=== PATIENT | female | born 1960 ===

== ENCOUNTER 2024-12-21 23:45 | Emergency (ER) | payer MEDICARE, MEDICAID, SELFPAY ==
--- NOTE | ~2024-12-21 | XR_ITS ---
CLINICAL HISTORY: hypotensive, AMS 1 view chest x-ray Comparison: None Findings: No consolidation or effusion. Heart size is normal. No acute fracture. IMPRESSION: 1. No acute findings. This document has been electronically signed by: Narciso Michelle MD, PHD on 12/22/2024 03:07:16
--- NOTE | 2024-12-22 | ECG_ITS ---
Test Reason : AMS/QTC CHECK Blood Pressure : */* mmHG Vent. Rate : 82 BPM Atrial Rate : 82 BPM P-R Int : 186 ms QRS Dur : 94 ms QT Int : 396 ms P-R-T Axes : 59 36 41 degrees QTcB Int : 462 ms Normal sinus rhythm Possible Left atrial enlargement Borderline ECG No previous ECGs available Referred By: Generic ED Physician Electronically Signed By: Surinder Beck
[2024-12-22 00:03] VITALS: BP 98/64; PULSE 97; O2SAT 98
[2024-12-22 00:05] VITALS: BMI 30.1
[2024-12-22 01:25] LABS: Basophils Absolute Auto 0.1 X10*3/uL (0.0-0.2); Basophils Percent Auto 0.8 % (0-2); Eosinophils Absolute Auto 0.2 X10*3/uL (0.0-0.4); Eosinophils Percent Auto 2.1 % (0-4); Hematocrit 31.3 % (37.0-47.0); Hemoglobin 10.9 g/dl (12.0-16.0); Imm Gran Abs Auto 0.02 X10*3/uL (0.00-0.03); Imm Gran Pct Auto 0.3 % (0.0-0.4); Lymphocytes Absolute Auto 2.9 X10*3/uL (1.2-4.9); Lymphocytes Percent Auto 40.9 % (20-40); MANUAL DIFF FLAG NO; Mean Corpuscular HGB Conc 34.8 g/dl (31.0-35.0); Mean Corpuscular Hemoglobin 30.1 pg (27.0-33.0); Mean Corpuscular Volume 86.5 fL (80.0-98.0); Mean Platelet Volume 8.8 fL (9.4-12.3); Monocytes Absolute Auto 0.6 X10*3/uL (0.1-1.2); Monocytes Percent Auto 8.3 % (2-11); Neutrophils Absolute Auto 3.4 x10*3/uL (2.0-8.3); Neutrophils Percent Auto 47.6 % (45-73); Platelet Count 272 X10*3/uL (160-400); Red Blood Count 3.62 X10*6/uL (4.20-5.50); Red Cell Distribution Width 14.8 % (11.0-16.0); White Blood Count 7.1 X10*3/uL (4.8-10.8)
[2024-12-22 01:56] LABS: Alanine Aminotransferase 14 U/L (0-31); Albumin Level 4.3 g/dL (3.5-5.0); Alkaline Phosphatase 58 U/L (39-117); Anion Gap 15 (12-20); Aspartate Amino Transferase 21 U/L (5-31); Bilirubin Total 0.2 mg/dL (0.0-1.0); Blood Urea Nitrogen 18 mg/dL (9-16); Calcium 9.3 mg/dL (8.4-10.2); Carbon Dioxide 24 mmol/L (22-29); Chloride 107 mmol/L (96-108); Creatinine Clr Calc Pharmacy 53.4; Estimated Glomerular Filt Rate 50; Glucose Random 113 mg/dL (60-115); Potassium 4.1 mmol/L (3.3-5.1); Sodium 142 mmol/L (135-145); Total Protein 6.7 g/dL (6.5-8.0)
[2024-12-22 02:08] VITALS: BP 93/48; PULSE 79; RESP 16; O2SAT 100
[2024-12-22] MEDS: 0.9 % Sodium Chloride 2,000 ML 999 ML IVCONT ×2 (02:10→03:15)
--- NOTE | 2024-12-22 02:13 | PC.NURSE ---
Addendum entered by Estela Orr RN 12/22/24 04:53: attempted to call [facility] several times, each time they transfer me to another unit and no answer. Addendum entered by Estela Orr RN 12/22/24 03:19: pt straight cath per md order with EDT, 100ml of yellow urine drained. pt tolerated well. Original Note: pt [facility] from [place] with reports of agitation and altered mental status. 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 Upon arrival to ED pt was alert to self only, not reposnding appropriately to questions, EDT tech heard her asking about babies being in the room. Per EMS pt has hx of schizophrenia. attempted to call the facility x 3, twice no answer and one time was answered left on hold.
--- NOTE | 2024-12-22 02:49 | ED_ITS ---
HPI - Altered Mental Status General Chief Complaint: Altered Mental Status Stated Complaint: ams, restlessness Time Seen by Provider: 12/22/24 02:06 Source: EMS Mode of arrival: EMS Limitations: altered mental status History of Present Illness ED Provider: Dr. Teresa Ortiz HPI narrative: Patient comes to the emergency room from [place] via ambulance. According to EMS, the staff reported that the patient was very agitated. [facility] informed EMS that the patient has been there for 1 day, patient has history of schizophrenia and dementia. Today, patient was refusing medications. Patient ended up getting IM 75 mg of fluorescein, and eventually they were able to give the patient p.o. meds including 5 mg of olanzapine, 1 mg of risperidone p.o., 50 mg of trazodone and 650 mg of Tylenol. When patient arrived, patient is somnolent, opens her eyes and falls back asleep. Related Data Allergies Allergy/AdvReac Type Severity Reaction Status Date / Time haloperidol [From Haldol] Allergy Unknown Verified 12/22/24 02:38 prednisone Allergy Unknown Verified 12/22/24 02:38 Review of Systems 2 Review of Systems: Yes Other [facility] Past Medical History Medical History Dementia Schizophrenia Social History Social History Advance Directives: No Advance Directives Information Provided: No Physical Exam ED Vital Signs: Vital Signs - 24 hr 12/22/24 02:08 12/22/24 03:14 Pulse Rate 79 82 Respiratory Rate 16 15 Blood Pressure 93/48 L 109/60 Pulse Oximetry 100 100 Oxygen Delivery Method Nasal Cannula Nasal Cannula Oxygen Flow Rate 2 2 BMI result Body Mass Index 30.1 Const Other: Appearance: Somnolent, wakes up and closes her eyes Eyes: Pupils equal, round and reactive to light. ENT: Pharynx normal. Neck: Normal inspection. Neck supple. No lymph nodes noted. No crepitus CVS: Normal heart rate and rhythm. Pulses normal. Normal S1 and S2 Respiratory: No respiratory distress. Breath sounds normal. No Wheezing. No rales Abdomen: Soft and nontender. No rigidity. No distention. Skin: Skin warm and dry. Normal skin color. Normal skin turgor. Extremities: No lower extremity edema. No Lacerations. No Rash Neuro: Somnolent Psych: Somnolent Course Course Course Narrative: Patient is unable to give any history We will obtain basic lab It seems that patient was overmedicated prior to arrival Patient's blood pressure on the soft side, high 80s low 90s, secondary to over medication. Patient has no fever at this time, sepsis is not suspected Patient receiving IV fluids Medications Administered Discontinued Medications Generic Name Dose Route Start Last Admin Trade Name Amanda PRN Reason Stop Dose Admin Sodium Chloride 2,000 mls @ 999 mls/hr 12/22/24 02:07 12/22/24 03:14 Ns IVCONT 12/22/24 04:07 Infused .Q2H1M ONE Infusion Sodium Chloride 2,000 mls @ 999 mls/hr 12/22/24 02:06 12/22/24 04:54 Ns IVCONT 12/22/24 04:06 Infused .Q2H1M ONE Infusion Medical Decision Making Medical Decision Making [facility] Narrative: My interpretation of labs: No significant abnormality in patient's hematology and chemistry Urinalysis negative for UTI, positive for benzodiazepines Patient's blood pressure in the 90s systolic. In his so somnolent that sometimes she desaturates, supplemental oxygen was started My interpretation of x-ray: No infiltrates. Oxygen desaturation likely secondary to being overmedicated At 5 am, patient awake, alert. Patient yelling out code blue, code blue , patient laughing and enjoying the attention of people rushing into her room Overall, seems that patient was overmedicated. At [facility], they need to review her medications. Here in the emergency room, patient had several episodes of hypotension secondary to polypharmacy. Hypotension resolved. Patient awake. Patient no longer lethargic. Patient ready to be discharged back to [facility] [facility] Differential Diagnosis Differential Diagnoses: The differential diagnosis associated with the presentation includes (Polypharmacy, UTI) Admission/Observation Consideration of admission/observation: Escalation of care including admission/observation considered (Given patient's low blood pressure due to polypharmacy, observation/admission was considered) Lab Data [facility] Lab Attestation statement: I reviewed the patient's lab results. 12/22/24 01:20 12/22/24 01:20 Labs: Lab Results 12/22/24 12/22/24 Range/Units 01:20 03:13 WBC 7.1 (4.8-10.8) X10*3/uL RBC 3.62 L (4.20-5.50) X10*6/uL Hgb 10.9 L (12.0-16.0) g/dl Hct 31.3 L (37.0-47.0) % MCV 86.5 (80.0-98.0) fL MCH 30.1 (27.0-33.0) pg MCHC 34.8 (31.0-35.0) g/dl RDW 14.8 (11.0-16.0) % Plt Count 272 (160-400) X10*3/uL MPV 8.8 L (9.4-12.3) fL Immature Gran % (Auto) 0.3 (0.0-0.4) % Neut % (Auto) 47.6 (45-73) % Lymph % (Auto) 40.9 H (20-40) % [place] % (Auto) 8.3 (2-11) % Eos % (Auto) 2.1 (0-4) % Baso % (Auto) 0.8 (0-2) % Lymph # (Auto) 2.9 (1.2-4.9) X10*3/uL [place] # (Auto) 0.6 (0.1-1.2) X10*3/uL Eos # (Auto) 0.2 (0.0-0.4) X10*3/uL Baso # (Auto) 0.1 (0.0-0.2) X10*3/uL Abs Immat Gran (auto) 0.02 (0.00-0.03) X10*3/uL Absolute Neuts (auto) 3.4 (2.0-8.3) x10*3/uL Absolute Nucleated RBC 0.000 (0.0-0.012) X10*3/uL Nucleated RBC % (auto) 0.0 (0.0-0.2) /100WBC Sodium 142 (135-145) mmol/L Potassium 4.1 (3.3-5.1) mmol/L Chloride 107 (96-108) mmol/L Carbon Dioxide 24 (22-29) mmol/L Anion Gap 15 (12-20) BUN 18 H (9-16) mg/dL Creatinine 1.10 (0.5-1.4) mg/dL Estim Creat Clear Calc 53.4 Estimated GFR 50 Random Glucose 113 (60-115) mg/dL Calcium 9.3 (8.4-10.2) mg/dL Total Bilirubin 0.2 (0.0-1.0) mg/dL AST 21 (5-31) U/L ALT 14 (0-31) U/L Alkaline Phosphatase 58 (39-117) U/L Total Protein 6.7 (6.5-8.0) g/dL Albumin 4.3 (3.5-5.0) g/dL Urine Color Yellow Urine Appearance Clear Urine pH 6.5 (5.0-9.0) Ur Specific [place] 1.020 (1.005-1.025) Urine Protein Negative (Neg-Trace) mg/dL Urine Glucose (UA) Negative (Negative) mg/dL Urine Ketones Trace (Negative) mg/dL Urine Blood Negative (Negative) Urine Nitrite Negative (Negative) Ur Leukocyte Esterase Negative (Negative) Urine Opiates Screen Not Detected (Not Detect) Ur Buprenorphine Scrn Not Detected (Not Detect) ng/mL Ur Oxycodone Screen Not Detected (Not Detect) ng/mL Urine Methadone Screen Not Detected (Not Detect) ng/mL Urine Fentanyl Screen Not Detected (Not Detect) Ur Barbiturates Screen Not Detected (Not Detect) Ur Phencyclidine Scrn Not Detected (Not Detect) Ur Amphetamines Screen Not Detected (Not Detect) U Benzodiazepines Scrn POSITIVE H (Not Detect) Urine Cocaine Screen Not Detected (Not Detect) U Marijuana (THC) Screen Not Detected (Not Detect) Independent Interpretation I performed an independent interpretation of an: Plain X-Ray Radiology Impression Discussion of test interpretation with radiology: I have reviewed the radiologist's reading. Radiologist Impression: No consolidation or effusion. Heart size is normal. No acute fracture. Critical Care Time Critical Care Time Critical Care Time: Yes Total Critical Care Time: 60 Attestation: I have personally provided critical care time. Time includes review of lab data, radiology results, discussion with consultants, and monitoring for potential decompensation. Intervention performed as documented. Discharge Plan Discharge Clinical Impression: Altered mental status, Polypharmacy, Medication side effects, Hypotension Patient Disposition: Home, Self-Care Instructions: Altered Mental Status (ED), Medication Safety for Older Adults (ED) Print Language: Sammarinese Sign Language
[2024-12-22 03:14] VITALS: BP 109/60; PULSE 82; RESP 15; O2SAT 100
[2024-12-22 03:23] LABS: Appearance Urine Clear; Color Urine Yellow; Glucose Urine UA Negative (Negative); Leukocyte Esterase Urine Negative (Negative); Nitrite Urine Negative (Negative); PH 6.5 (5.0-9.0); Urine Blood Negative (Negative); Urine Ketones Trace mg/dL (Negative); Urine Protein Negative (Neg-Trace)
[2024-12-22 03:41] LABS: Amphetamine Screen Urine Not Detected (Not Detect); Barbiturates, Urine Not Detected (Not Detect); Benzodiazepines Screen Urine POSITIVE (Not Detect); Buprenorphine Scr Not Detected (Not Detect); Cannabinoid Screen Urine Not Detected (Not Detect); Cocaine Screen Urine Not Detected (Not Detect); Fentanyl, urine Not Detected (Not Detect); Methadone Screen, Urine Not Detected (Not Detect); Opiate Screen Urine Not Detected (Not Detect); Oxycodone Screen Urine Not Detected (Not Detect); Phencyclidine Screen Urine Not Detected (Not Detect)
== END 2024-12-22 07:24 | disposition home or self-care (01) ==
PROVIDERS: Emergency Provider Emergency Medicine
DX: R41.82 Altered mental status, unspecified (principal); R45.1 Restlessness and agitation; R40.0 Somnolence; T50.8X5A Adverse effect of diagnostic agents, initial encounter; T43.595A Adverse effect of other antipsychotics and neuroleptics, initial encounter; T43.215A Adverse effect of selective serotonin and norepinephrine reuptake inhibitors, initial encounter; T39.1X5A Adverse effect of 4-Aminophenol derivatives, initial encounter; Y92.239 Unspecified place in hospital as the place of occurrence of the external cause
CPT/HCPCS: 36415; 71045; 80053; 80307; 81003; 85025; 93005; 96360; 96361; 99284

== ENCOUNTER → 2024-12-22 01:39 | Outpatient (BNV) | payer MEDICARE, MEDICAID, SELFPAY | PROVIDERS: Emergency Provider Emergency Medicine; Visit Provider Internal Medicine Cardiovascular Disease | DX: R41.82 Altered mental status, unspecified (principal) | CPT/HCPCS: 93010 ==

== ENCOUNTER → 2024-12-22 02:06 | Outpatient (BNV) | payer MEDICARE, MEDICAID, SELFPAY | PROVIDERS: Emergency Provider Emergency Medicine; Visit Provider General Practice | DX: R41.82 Altered mental status, unspecified (principal) | CPT/HCPCS: 71045 ==